=== PATIENT | female | born 2005 | race Caucasian/White ===

== ENCOUNTER → 2025-01-07 | Outpatient (CLI) | payer OTHER ==
--- NOTE | 2025-01-07 10:19 | XR ---
EXAMINATION TYPE: XR lumbar spine 2 or 3V DATE OF EXAM: 01/07/2025 CLINICAL HISTORY: S39.021D LACERATION OF MUSCLE, FASCIA AND TENDON O TECHNIQUE: Three views of the lumbar spine are submitted. COMPARISON: None. FINDINGS: There are 5 lumbar type vertebral bodies identified. Minimal dextrocurvature of the lumbar spine wit h apex at L3. The lumbar spine shows satisfactory alignment without evidence of acute fracture or dis location. Vertebral body heights are within normal limits. Disc spaces are within normal limits. T he overlying soft tissue appears unremarkable. No radiopaque foreign body. IMPRESSION: No acute fracture or dislocation is seen in the lumbar spine. [facility], , 01/07/2025 10:17 AM
== END | disposition home or self-care (01) ==
LOC: RADXRMAIN 09:58
PROVIDERS: ATTEND Emergency Medicine
DX: S39.0 Injury of muscle, fascia and tendon of abdomen, lower back and pelvis (principal); X58.XXXD Exposure to other specified factors, subsequent encounter
CPT/HCPCS: 72100